=== PATIENT | male | born 1955 | race Caucasian/White ===

== ENCOUNTER 2022-03-24 22:32 | Inpatient (IN) | payer OTHER ==
[2022-03-25] MEDS ORDERED: Nicotine 14 MG PATCH TD SCH (02:00)
[2022-03-25 02:01] VITALS: BMI 28.9
[2022-03-25] MEDS ORDERED: Norepinephrine 8 MG/0.9% NS 250 ML IVPB SCH (02:15)
[2022-03-25] MEDS: Sodium Chloride 0.9% 1,000 ML IV SCH ×2 (03:07→10:30)
[2022-03-25] MEDS ORDERED: Dextrose 5% in Water 1,000 ML IV PRN (03:45)
[2022-03-25] MEDS ORDERED: Dextrose 50% Abboject 50 ML SYRINGE SLOW IVP PRN (03:45)
[2022-03-25] MEDS ORDERED: HumaLOG 300 UNITS/3 ML VIAL SC PRN (03:45)
[2022-03-25 04:29] LABS: ALT (SGPT) 52 U/L (8-55); AST (SGOT) 108 U/L (5-34); Albumin 3.2 g/dL (3.4-4.8); Alkaline Phosphatase 118 U/L (40-110); Anion Gap 16 mmol/L (10-20); BUN (Urea Nitrogen) 41 mg/dL (8.4-25.7); Bilirubin, Total 0.4 mg/dL (0.2-1.2); CK (CPK) 1399 U/L (30-200); Calc. Creatinine Clearance 21 mL/min (70-130); Calcium 7.5 mg/dL (7.8-10.44); Carbon Dioxide 17 mmol/L (23-31); Chloride 102 mmol/L (98-107); Globulin 2.9 g/dL (2.4-3.5); Glucose 198 mg/dL (80-115); Potassium 4.9 mmol/L (3.5-5.1); Protein, Total 6.1 g/dL (5.8-8.1); Sodium 130 mmol/L (136-145)
[2022-03-25 04:32] LABS: INR-International Normal Ratio 3.7; Prothrombin Time 37.7 sec (12.0-14.7)
[2022-03-25 04:46] LABS: Troponin I 0.673 ng/mL (< 0.028)
[2022-03-25] MEDS: Sodium Bicarbonate 75 MEQ in Sodium Chloride 0.45% 1,000 ML IV SCH ×2 (07:27→16:38)
[2022-03-25 07:52] LABS: Amphetamine Not Detected (NotDetected); Barbiturates Screen Not Detected (NotDetected); Benzodiazepine Screen Not Detected (NotDetected); Cocaine Metabolite Screen Not Detected (NotDetected); Methadone Not Detected (NotDetected); Methamphetamine Not Detected (NotDetected); Opiate Screen Detected (NotDetected); Oxycodone Screen Not Detected (NotDetected); Phencyclidine (PCP) Not Detected (NotDetected); THC/Cannabinoid Screen Not Detected (NotDetected); Tricyclic Screen Detected (NotDetected)
[2022-03-25 08:30] LABS: Troponin I 0.828 ng/mL (< 0.028)
[2022-03-25] MEDS: HumaLOG 300 UNITS/3 ML VIAL SC PRN ×3 (08:55→16:39)
[2022-03-25] MEDS ORDERED: Pregabalin 75 MG CAP PO SCH ×2 (16:00→21:00)
[2022-03-25] MEDS: HYDROcodone/Acetaminophen 10/325 mg Tablet PO PRN (16:09)
[2022-03-25 19:01] LABS: Troponin I 1.883 ng/mL (< 0.028)
[2022-03-25] MEDS ORDERED: diphenhydrAMINE 25 MG CAP PO PRN (19:32)
[2022-03-25] MEDS: Nicotine 21 MG PATCH TD SCH (20:32)
[2022-03-25] MEDS ORDERED: Carvedilol 25 MG TAB PO SCH (21:00)
[2022-03-25] MEDS: Melatonin 3 MG TAB PO SCH (21:55)
[2022-03-25] MEDS: DULoxetine 30 MG CAP PO SCH (21:55)
[2022-03-25] MEDS: Doxepin HCl 25 MG CAP PO SCH (21:55)
[2022-03-25] MEDS: Pregabalin 75 MG CAP PO SCH (21:56)
[2022-03-26] MEDS: Sodium Bicarbonate 75 MEQ in Sodium Chloride 0.45% 1,000 ML IV SCH (00:53)
[2022-03-26 05:13] LABS: INR-International Normal Ratio 2.4; Prothrombin Time 26.9 sec (12.0-14.7)
[2022-03-26 05:24] LABS: ALT (SGPT) 42 U/L (8-55); AST (SGOT) 75 U/L (5-34); Albumin 2.9 g/dL (3.4-4.8); Alkaline Phosphatase 119 U/L (40-110); Anion Gap 13 mmol/L (10-20); BUN (Urea Nitrogen) 36 mg/dL (8.4-25.7); Bilirubin, Total 0.7 mg/dL (0.2-1.2); CK (CPK) 598 U/L (30-200); Calc. Creatinine Clearance 23 mL/min (70-130); Calcium 7.5 mg/dL (7.8-10.44); Carbon Dioxide 24 mmol/L (23-31); Chloride 102 mmol/L (98-107); Glucose 166 mg/dL (80-115); Potassium 4.4 mmol/L (3.5-5.1); Protein, Total 5.9 g/dL (5.8-8.1); Sodium 135 mmol/L (136-145)
[2022-03-26] MEDS: HumaLOG 300 UNITS/3 ML VIAL SC PRN ×3 (06:26→16:54)
[2022-03-26] MEDS: HYDROcodone/Acetaminophen 10/325 mg Tablet PO PRN ×2 (07:29→13:53)
[2022-03-26] MEDS: Pregabalin 75 MG CAP PO SCH ×2 (07:55→20:05)
[2022-03-26] MEDS ORDERED: Sodium Chloride 0.9% 1,000 ML IV SCH (08:30)
[2022-03-26] MEDS: DULoxetine 30 MG CAP PO SCH ×2 (08:34→20:04)
[2022-03-26] MEDS: Ferrous Sulfate 325 MG TAB PO SCH (08:34)
[2022-03-26] MEDS: Folic Acid 1 MG TAB PO SCH (08:34)
[2022-03-26] MEDS: Cholecalciferol 1,000 UNITS (25 MCG) TAB PO SCH (08:35)
[2022-03-26] MEDS: Thiamine 100 MG TAB PO SCH (08:35)
[2022-03-26] MEDS: Vit A,C & E/Lutein/Minerals Tablet PO SCH (08:35)
[2022-03-26] MEDS: Sodium Chloride 0.9% 1,000 ML IV SCH (08:45)
[2022-03-26] MEDS ORDERED: Sodium Bicarbonate 150 MEQ in Dextrose 5% in Water 1,000 ML IV SCH (09:00)
[2022-03-26] MEDS ORDERED: Midodrine HCl 5 MG TAB PO SCH (10:45)
[2022-03-26] MEDS: Midodrine HCl 5 MG TAB PO SCH ×3 (10:54→20:05)
[2022-03-26] MEDS ORDERED: WARFARIN IVPB PRN (14:12)
[2022-03-26] MEDS: Warfarin Sodium 2 MG TAB PO SCH (16:58)
[2022-03-26] MEDS: Doxepin HCl 25 MG CAP PO SCH (20:04)
[2022-03-26] MEDS: Nicotine 21 MG PATCH TD SCH (20:04)
[2022-03-26] MEDS: Melatonin 3 MG TAB PO SCH (20:04)
[2022-03-27] MEDS: Sodium Chloride 0.9% 1,000 ML IV SCH ×2 (00:03→12:30)
[2022-03-27 04:39] LABS: INR-International Normal Ratio 1.5; Prothrombin Time 18.5 sec (12.0-14.7)
[2022-03-27 04:57] LABS: ALT (SGPT) 34 U/L (8-55); AST (SGOT) 54 U/L (5-34); Albumin 2.8 g/dL (3.4-4.8); Alkaline Phosphatase 110 U/L (40-110); Anion Gap 13 mmol/L (10-20); BUN (Urea Nitrogen) 31 mg/dL (8.4-25.7); Bilirubin, Total 0.6 mg/dL (0.2-1.2); CK (CPK) 388 U/L (30-200); Calc. Creatinine Clearance 36 mL/min (70-130); Calcium 7.5 mg/dL (7.8-10.44); Carbon Dioxide 26 mmol/L (23-31); Chloride 104 mmol/L (98-107); Globulin 3.2 g/dL (2.4-3.5); Glucose 231 mg/dL (80-115); Potassium 4.4 mmol/L (3.5-5.1); Sodium 139 mmol/L (136-145)
[2022-03-27] MEDS: HYDROcodone/Acetaminophen 10/325 mg Tablet PO PRN ×2 (06:13→12:28)
[2022-03-27] MEDS: HumaLOG 300 UNITS/3 ML VIAL SC PRN ×3 (06:13→17:55)
[2022-03-27] MEDS: Thiamine 100 MG TAB PO SCH (10:02)
[2022-03-27] MEDS: Cholecalciferol 1,000 UNITS (25 MCG) TAB PO SCH (10:02)
[2022-03-27] MEDS: DULoxetine 30 MG CAP PO SCH ×2 (10:02→20:26)
[2022-03-27] MEDS: Pregabalin 75 MG CAP PO SCH ×2 (10:02→20:26)
[2022-03-27] MEDS: Folic Acid 1 MG TAB PO SCH (10:02)
[2022-03-27] MEDS: Ferrous Sulfate 325 MG TAB PO SCH (10:03)
[2022-03-27] MEDS: Vit A,C & E/Lutein/Minerals Tablet PO SCH (10:03)
[2022-03-27] MEDS: Insulin Glargine 30 UNITS/0.3 ML VIAL SC SCH (10:04)
[2022-03-27] MEDS: Midodrine HCl 5 MG TAB PO SCH (10:12)
[2022-03-27] MEDS: Warfarin Sodium 2 MG TAB PO SCH (17:55)
[2022-03-27] MEDS: Nicotine 21 MG PATCH TD SCH (20:25)
[2022-03-27] MEDS: Doxepin HCl 25 MG CAP PO SCH (20:26)
[2022-03-27] MEDS: Carvedilol 25 MG TAB PO SCH (20:27)
[2022-03-27] MEDS: Melatonin 3 MG TAB PO SCH (20:27)
[2022-03-28] MEDS: Sodium Chloride 0.9% 1,000 ML IV SCH (02:28)
[2022-03-28 05:15] LABS: Hemoglobin 15.7 g/dL (14.0-18.0); Platelet Count 167 thou/uL (130-400)
[2022-03-28 05:18] LABS: INR-International Normal Ratio 1.2; Prothrombin Time 15.2 sec (12.0-14.7)
[2022-03-28 05:19] LABS: ALT (SGPT) 41 U/L (8-55); AST (SGOT) 72 U/L (5-34); Albumin 2.9 g/dL (3.4-4.8); Alkaline Phosphatase 119 U/L (40-110); Anion Gap 15 mmol/L (10-20); BUN (Urea Nitrogen) 20 mg/dL (8.4-25.7); Bilirubin, Total 0.8 mg/dL (0.2-1.2); Calc. Creatinine Clearance 61 mL/min (70-130); Calcium 7.5 mg/dL (7.8-10.44); Carbon Dioxide 21 mmol/L (23-31); Chloride 107 mmol/L (98-107); Globulin 3.4 g/dL (2.4-3.5); Glucose 190 mg/dL (80-115); Potassium 4.1 mmol/L (3.5-5.1); Protein, Total 6.3 g/dL (5.8-8.1); Sodium 139 mmol/L (136-145)
[2022-03-28] MEDS: HumaLOG 300 UNITS/3 ML VIAL SC PRN ×2 (05:25→11:48)
[2022-03-28] MEDS: HYDROcodone/Acetaminophen 10/325 mg Tablet PO PRN (06:42)
[2022-03-28] MEDS ORDERED: Warfarin Sodium 5 MG TAB PO SCH (07:00)
[2022-03-28] MEDS ORDERED: Sodium Bicarbonate Tab 325 MG TAB PO SCH (09:00)
[2022-03-28] MEDS ORDERED: Lisinopril 20 MG TAB PO SCH (09:00)
[2022-03-28] MEDS: Folic Acid 1 MG TAB PO SCH (09:49)
[2022-03-28] MEDS: Carvedilol 25 MG TAB PO SCH (09:49)
[2022-03-28] MEDS: Cholecalciferol 1,000 UNITS (25 MCG) TAB PO SCH (09:49)
[2022-03-28] MEDS: Ferrous Sulfate 325 MG TAB PO SCH (09:49)
[2022-03-28] MEDS: Vit A,C & E/Lutein/Minerals Tablet PO SCH (09:50)
[2022-03-28] MEDS: Pregabalin 75 MG CAP PO SCH (09:50)
[2022-03-28] MEDS: DULoxetine 30 MG CAP PO SCH (09:50)
[2022-03-28] MEDS: Insulin Glargine 30 UNITS/0.3 ML VIAL SC SCH (09:50)
[2022-03-28] MEDS: Thiamine 100 MG TAB PO SCH (09:50)
[2022-03-28 12:37] VITALS: BP 165/87; TEMP 98.4
== END 2022-03-28 12:35 | disposition home or self-care (01) | DRG 280 ==
LOC: CCU 22:32 → UNDOADMIN 22:32 → CCU 03-25 00:42 → 2NO 03-26 18:19
PROVIDERS: ADMIT Family Medicine; ATTEND Family Medicine
PROC: 3E033XZ Introduction of Vasopressor into Peripheral Vein, Percutaneous Approach (ICD-10-PCS; principal; 2022-03-25)
DX: I95.89 Other hypotension (principal); I21.A1 Myocardial infarction type 2; K72.00 Acute and subacute hepatic failure without coma; R57.8 Other shock; R57.1 Hypovolemic shock; N17.9 Acute kidney failure, unspecified; M62.82 Rhabdomyolysis; E87.1 Hypo-osmolality and hyponatremia; E87.2 Acidosis; E27.40 Unspecified adrenocortical insufficiency; Z20.822 Contact with and (suspected) exposure to COVID-19; I25.10 Atherosclerotic heart disease of native coronary artery without angina pectoris; E86.0 Dehydration; R29.6 Repeated falls; E11.21 Type 2 diabetes mellitus with diabetic nephropathy; E88.89 Other specified metabolic disorders; K70.30 Alcoholic cirrhosis of liver without ascites; F10.10 Alcohol abuse, uncomplicated; Z95.1 Presence of aortocoronary bypass graft; Z87.820 Personal history of traumatic brain injury; Z90.49 Acquired absence of other specified parts of digestive tract
CPT/HCPCS: 0439T; 36415; 36416; 70450; 71045; 76700; 76856; 80053; 80306; 82306; 82533; 82550; 83036; 84145; 84484; 85014; 85018; 85049; 85610; 93306; 94640; J1815; J7050; J7620

== ENCOUNTER 2022-04-05 11:20 | Inpatient (IN) | payer OTHER ==
[2022-04-05 11:54] LABS: #Basophils 0.1 thou/uL (0.0-0.2); #Eosinphils 0.2 thou/uL (0.0-0.7); #Monocytes 0.6 thou/uL (0.11-0.59); #Neutrophils 6.6 thou/uL (1.40-6.50); %Basophils 0.8 % (0.0-1.0); %Lymphocytes 21.1 % (21.0-51.0); %Monocytes 6.1 % (0.0-10.0); Hemoglobin 15.4 g/dL (14.0-18.0); Mean Corpuscular HGB CONC 32.7 g/dL (32.0-36.0); Mean Corpuscular Hemoglobin 35.7 pg (27.0-31.0); Mean Platelet Volume 8.4 fL (7.4-10.4); Platelet Count 265 thou/uL (130-400); RBC Distribution Width 13.1 % (11.5-14.5); Red Blood Cell (RBC) Count 4.31 mill/uL (4.70-6.10); White Blood Cell (WBC) Count 9.4 thou/uL (4.8-10.8)
[2022-04-05 12:09] LABS: MDiff Complete? YES; Macrocytosis SLIGHT = 6-15 cells (100X) (0-5/hpf); Platelet Morphology Comment Appears Adequate; Polychromasia SLIGHT = 2-3 cells (100X) (0-2/hpf)
[2022-04-05 12:14] LABS: ALT (SGPT) 34 U/L (8-55); AST (SGOT) 63 U/L (5-34); Albumin 3.4 g/dL (3.4-4.8); Alkaline Phosphatase 142 U/L (40-110); Anion Gap 13 mmol/L (10-20); BUN (Urea Nitrogen) 14 mg/dL (8.4-25.7); Bilirubin, Total 0.4 mg/dL (0.2-1.2); CK (CPK) 2731 U/L (30-200); Calc. Creatinine Clearance 0 mL/min (70-130); Carbon Dioxide 33 mmol/L (23-31); Chloride 97 mmol/L (98-107); Globulin 3.6 g/dL (2.4-3.5); Glucose 224 mg/dL (80-115); Lipase 59 U/L (8-78); Potassium 3.7 mmol/L (3.5-5.1); Sodium 139 mmol/L (136-145)
[2022-04-05 12:23] LABS: Magnesium 0.9 mg/dL (1.6-2.6)
[2022-04-05 12:34] LABS: CKMB 45.4 ng/mL (0-6.6)
[2022-04-05] MEDS ORDERED: HYDROcodone/Acetaminophen 10/325 mg Tablet ONE (13:22)
[2022-04-05] MEDS ORDERED: Magnesium 2 GM/50 ML(in water) 2 GM in Premix Bag 1 BAG IVPB SCH ×2 (13:30→19:45)
[2022-04-05 15:00] LABS: Bacteria/HPF None Seen HPF (None Seen); Bilirubin Negative (Negative); Blood, Urine 1+ (Negative); Clarity Clear (Clear); Glucose, Urine (Dipstick) Greater than 1000 mg/dL (Negative); Ketone, Urine Negative (Negative); Leukocyte Negative Leu/uL (Negative); Nitrite Negative (Negative); Protein, Urine (Dipstick) Negative (Neg-Trace); Specific Gravity, Urine 1.012 (1.002-1.036); Squamous Epithelial 0-3 HPF (0-3); Urobilinogen Normal mg/dL (Less than 2); WBC/HPF 0-3 HPF (0-3)
[2022-04-05 16:06] LABS: Troponin I 0.046 ng/mL (< 0.028)
[2022-04-05] MEDS ORDERED: Dextrose 5% in Water 1,000 ML IV PRN (16:21)
[2022-04-05] MEDS ORDERED: Dextrose 50% Abboject 50 ML SYRINGE SLOW IVP PRN (16:21)
[2022-04-05] MEDS ORDERED: HumaLOG 300 UNITS/3 ML VIAL SC PRN ×2 (16:21)
[2022-04-05] MEDS ORDERED: Lactated Ringer's 1,000 ML IV SCH (16:30)
[2022-04-05] MEDS ORDERED: Folic Acid 1 MG TAB PO SCH (16:30)
[2022-04-05] MEDS ORDERED: Multivit, Therapeutic 1 TAB PO SCH (16:45)
[2022-04-05 16:53] LABS: Amphetamine Not Detected (NotDetected); Barbiturates Screen Not Detected (NotDetected); Benzodiazepine Screen Not Detected (NotDetected); Cocaine Metabolite Screen Not Detected (NotDetected); Methadone Not Detected (NotDetected); Methamphetamine Not Detected (NotDetected); Opiate Screen Detected (NotDetected); Oxycodone Screen Not Detected (NotDetected); Phencyclidine (PCP) Not Detected (NotDetected); THC/Cannabinoid Screen Detected (NotDetected); Tricyclic Screen Detected (NotDetected)
[2022-04-05] MEDS ORDERED: Thiamine HCl 200 MG/2 ML VIAL SLOW IVP SCH (17:00)
[2022-04-05] MEDS ORDERED: Nicotine 14 MG PATCH TD SCH (17:00)
[2022-04-05 17:17] LABS: INR-International Normal Ratio 3.1; PTT 48.5 sec (22.9-36.1); Prothrombin Time 32.3 sec (12.0-14.7)
[2022-04-05 17:28] LABS: Phosphorus 4.8 mg/dL (2.3-4.7)
[2022-04-05 17:41] VITALS: BMI 28.5
[2022-04-05] MEDS ORDERED: Nicotine 21 MG PATCH TD SCH (18:00)
[2022-04-05 18:38] LABS: Syphilis Antibody Nonreactive (Nonreactive); Syphilis Antibody Index 0.08 S/CO (<1.00 Non-Reactive)
[2022-04-05 18:57] LABS: Troponin I 0.046 ng/mL (< 0.028)
[2022-04-05] MEDS ORDERED: Simethicone Chewable 80 MG TAB PO PRN (19:00)
[2022-04-05 19:18] LABS: Magnesium 1.3 mg/dL (1.6-2.6)
[2022-04-05] MEDS: Albuterol Sulfate 2.5 mg/3 ml Neb NEB PRN (20:16)
[2022-04-05] MEDS: DULoxetine 30 MG CAP PO SCH (20:40)
[2022-04-05] MEDS ORDERED: Atorvastatin Calcium 40 MG TAB PO SCH (21:00)
[2022-04-05] MEDS ORDERED: Pregabalin 75 MG CAP PO SCH (22:00)
[2022-04-05] MEDS ORDERED: Melatonin 3 MG TAB PO SCH (22:00)
[2022-04-06 00:04] LABS: SARS-CoV-2 PCR by NAA Not Detected (NotDetected)
[2022-04-06] MEDS: Albuterol Sulfate 2.5 mg/3 ml Neb NEB PRN ×2 (01:02→08:53)
[2022-04-06 04:26] LABS: #Basophils 0.1 thou/uL (0.0-0.2); #Eosinphils 0.2 thou/uL (0.0-0.7); #Monocytes 0.6 thou/uL (0.11-0.59); #Neutrophils 5.2 thou/uL (1.40-6.50); %Basophils 1.2 % (0.0-1.0); %Eosinophils 2.9 % (0.0-10.0); %Lymphocytes 24.1 % (21.0-51.0); %Monocytes 7.3 % (0.0-10.0); %Neutrophils 64.5 % (42.0-75.0); Hemoglobin 14.3 g/dL (14.0-18.0); Mean Corpuscular HGB CONC 33.3 g/dL (32.0-36.0); Mean Corpuscular Hemoglobin 36.5 pg (27.0-31.0); Mean Platelet Volume 8.2 fL (7.4-10.4); Platelet Count 259 thou/uL (130-400); Red Blood Cell (RBC) Count 3.91 mill/uL (4.70-6.10); White Blood Cell (WBC) Count 8.1 thou/uL (4.8-10.8)
[2022-04-06 04:33] LABS: INR-International Normal Ratio 2.6; Prothrombin Time 28.5 sec (12.0-14.7)
[2022-04-06 05:10] LABS: Anion Gap 12 mmol/L (10-20); BUN (Urea Nitrogen) 14 mg/dL (8.4-25.7); Calc. Creatinine Clearance 104 mL/min (70-130); Carbon Dioxide 32 mmol/L (23-31); Chloride 98 mmol/L (98-107); Potassium 3.6 mmol/L (3.5-5.1); Sodium 138 mmol/L (136-145)
[2022-04-06 05:11] LABS: ALT (SGPT) 28 U/L (8-55); AST (SGOT) 50 U/L (5-34); Albumin 3.1 g/dL (3.4-4.8); Alkaline Phosphatase 133 U/L (40-110); Bilirubin, Total 0.5 mg/dL (0.2-1.2); CK (CPK) 1231 U/L (30-200); Globulin 3.2 g/dL (2.4-3.5); Glucose 242 mg/dL (80-115); Magnesium 1.7 mg/dL (1.6-2.6); Protein, Total 6.3 g/dL (5.8-8.1)
[2022-04-06] MEDS ORDERED: glipiZIDE 10 MG TAB PO SCH (07:30)
[2022-04-06] MEDS ORDERED: Ferrous Sulfate 325 MG TAB PO SCH (08:00)
[2022-04-06] MEDS ORDERED: Potassium Chloride 10 MEQ TAB PO SCH (08:00)
[2022-04-06] MEDS ORDERED: metFORMIN 500 MG TAB PO SCH (08:00)
[2022-04-06 08:42] LABS: INR-International Normal Ratio 2.1; Prothrombin Time 23.6 sec (12.0-14.7)
[2022-04-06] MEDS ORDERED: Folic Acid 1 MG TAB PO SCH (09:00)
[2022-04-06] MEDS ORDERED: Magnesium Oxide 400 MG TAB PO SCH (09:00)
[2022-04-06] MEDS ORDERED: Multivit, Therapeutic 1 TAB PO SCH (09:00)
[2022-04-06] MEDS ORDERED: Cholecalciferol 1,000 UNITS (25 MCG) TAB PO SCH (09:00)
[2022-04-06] MEDS ORDERED: Empagliflozin 25 MG TAB PO SCH (09:00)
[2022-04-06] MEDS ORDERED: Pregabalin 75 MG CAP PO SCH (09:00)
[2022-04-06] MEDS: DULoxetine 30 MG CAP PO SCH (09:15)
[2022-04-06] MEDS ORDERED: HYDROcodone/Acetaminophen 10/325 mg Tablet PO PRN (09:56)
[2022-04-06 12:47] VITALS: BP 184/95; TEMP 98.7
[2022-04-06] MEDS ORDERED: Warfarin Sodium 10 MG TAB PO SCH ×2 (17:00)
[2022-04-06] MEDS ORDERED: Melatonin 3 MG TAB PO SCH (21:00)
[2022-04-06] MEDS ORDERED: Carvedilol 25 MG TAB PO SCH (21:00)
[2022-04-07] MEDS ORDERED: Furosemide 40 MG TAB PO SCH (09:00)
[2022-04-07] MEDS ORDERED: Lisinopril 20 MG TAB PO SCH (09:00)
[2022-04-08] MEDS ORDERED: Thiamine 100 MG TAB PO SCH (09:00)
[2022-04-11] MEDS ORDERED: Warfarin Sodium 7.5 MG TAB PO SCH (17:00)
== END 2022-04-06 15:40 | disposition home or self-care (01) | DRG 558 ==
LOC: ERS 11:20 → 2NO 15:22
PROVIDERS: ADMIT Student in an Organized Health Care Education/Training Program; ATTEND Student in an Organized Health Care Education/Training Program
DX: M62.82 Rhabdomyolysis (principal); I50.22 Chronic systolic (congestive) heart failure; I95.2 Hypotension due to drugs; Z20.822 Contact with and (suspected) exposure to COVID-19; E83.42 Hypomagnesemia; I25.10 Atherosclerotic heart disease of native coronary artery without angina pectoris; E86.0 Dehydration; J44.9 Chronic obstructive pulmonary disease, unspecified; E11.65 Type 2 diabetes mellitus with hyperglycemia; F10.10 Alcohol abuse, uncomplicated; Y90.0 Blood alcohol level of less than 20 mg/100 ml; K74.60 Unspecified cirrhosis of liver; K76.0 Fatty (change of) liver, not elsewhere classified; R94.31 Abnormal electrocardiogram [ECG] [EKG]; R77.8 Other specified abnormalities of plasma proteins; T44.7X5A Adverse effect of beta-adrenoreceptor antagonists, initial encounter; I25.2 Old myocardial infarction; Z79.01 Long term (current) use of anticoagulants; Z95.2 Presence of prosthetic heart valve; Z95.1 Presence of aortocoronary bypass graft; Z88.5 Allergy status to narcotic agent; Z79.899 Other long term (current) drug therapy; Z79.84 Long term (current) use of oral hypoglycemic drugs; Z90.49 Acquired absence of other specified parts of digestive tract; Z98.890 Other specified postprocedural states
CPT/HCPCS: 36415; 36416; 71045; 80053; 80306; 81003; 81015; 82550; 82553; 83605; 83690; 83735; 83880; 84100; 84484; 85025; 85610; 85730; 86780; 93005; 94640; 96361; 96365; J3411; J3475; J7120; J7611; J7620; U0003; U0005